=== PATIENT | male | born 1965 | race Caucasian/White ===

== ENCOUNTER 2016-09-03 06:39 | Emergency (ER) | payer MEDICAID ==
[2016-06-21 08:17] VITALS: BMI 36.7
[~2016-09-03 06:39] MED LIST: HYDROCODON-ACE1 EAC7 PO; HYDROCODONE-APA1 TAB PO
[2016-09-03 07:41] LABS: BASOPHILS 0.6 % (0.0-2.0); EOSINOPHILS 1.2 % (0-7); HEMATOCRIT 47.1 % (42.0-54.0); HEMOGLOBIN 15.3 g/dL (13.5-17.5); IMMATURE GRANULOCYTES 0.3 % (0-5); LYMPHOCYTES 17.8 % (15-50); MCH 27.3 pg (26.0-34.0); MCHC 32.5 g/dL (31.0-37.0); MCV 84.1 fL (80.0-100.0); MEAN PLATELET VOLUME 10.3 fL (7.4-10.4); MONOCYTES 6.6 % (2-11); NEUTROPHILS 73.5 % (40-80); PLATELET COUNT 188 10x3/uL (130-400); RDW 15.2 % (11.5-14.5); WBC 10.5 10x3/uL (4.8-10.8)
[2016-09-03 08:03] LABS: CALC OSMOLALITY 273 mosm/kg (275-300); CALCIUM 8.9 mg/dL (8.5-10.1); CARBON DIOXIDE 26.6 mmol/L (21.0-32.0); CHLORIDE - SERUM 101 mmol/L (98-107); CREATININE - SERUM 0.7 mg/dL (0.6-1.3); GLUCOSE 127 mg/dL (74-106); POTASSIUM - SERUM 4.6 mmol/L (3.5-5.1); SODIUM 136 mmol/L (136-145); UREA NITROGEN 13 mg/dL (7-18); eGFR NON AFRICAN AMERICAN > 90 mL/min (90-120)
[2016-09-03 08:05] LABS: TROPONIN-I < 0.017 ng/mL (0.000-0.060)
== END 2016-09-03 09:00 | disposition home or self-care (01) ==
LOC: D.ER 06:39
PROVIDERS: Emergency Medicine
DX: J20.9 Acute bronchitis, unspecified (principal); F17.200 Nicotine dependence, unspecified, uncomplicated

== ENCOUNTER 2017-02-02 14:53 | Emergency (ER) | payer MEDICAID ==
[2016-06-21 08:17] VITALS: BMI 36.7
[2017-02-02 16:09] LABS: BASOPHILS 0.4 % (0-2); EOSINOPHILS 1.1 % (0-7); HEMATOCRIT 43.8 % (42.0-54.0); HEMOGLOBIN 14.1 g/dL (13.5-17.5); IMMATURE GRANULOCYTES 0.3 % (0-5); LYMPHOCYTES 17.8 % (15-50); MCH 27.2 pg (26.0-34.0); MCHC 32.2 g/dL (31.0-37.0); MCV 84.6 fL (80.0-100.0); MEAN PLATELET VOLUME 10.5 fL (7.4-10.4); MONOCYTES 6.2 % (2-11); NEUTROPHILS 74.2 % (40-80); RBC 5.18 10x6/uL (4.20-6.10); RDW 15.5 % (11.5-14.5); WBC 10.8 10x3/uL (4.8-10.8)
[2017-02-02 16:16] LABS: ALBUMIN 3.3 g/dL (3.4-5.0); ALKALINE PHOSPHATASE 115 U/L (46-116); ALT (SGPT) 59 U/L (10-68); BILIRUBIN - TOTAL 0.26 mg/dL (0.2-1.3); CALC OSMOLALITY 279 mosm/kg (275-300); CALCIUM 9.3 mg/dL (8.5-10.1); CARBON DIOXIDE 27.1 mmol/L (21.0-32.0); CHLORIDE - SERUM 102 mmol/L (98-107); CREATININE - SERUM 0.7 mg/dL (0.6-1.3); GLUCOSE 149 mg/dL (74-106); POTASSIUM - SERUM 3.9 mmol/L (3.5-5.1); PROTEIN - SERUM 7.5 g/dL (6.4-8.2); SODIUM 137 mmol/L (136-145); UREA NITROGEN 21 mg/dL (7-18); eGFR NON AFRICAN AMERICAN > 90 mL/min (90-120)
[2017-02-02 16:20] LABS: TROPONIN-I < 0.017 ng/mL (0.000-0.060)
[2017-02-02 16:21] LABS: PLATELET COUNT 142 10x3/uL (130-400)
== END 2017-02-02 19:57 | disposition home or self-care (01) ==
LOC: D.ER 14:53
PROVIDERS: Emergency Medicine
DX: R05 Cough (principal); R50.9 Fever, unspecified; E86.0 Dehydration; R06.02 Shortness of breath; F17.200 Nicotine dependence, unspecified, uncomplicated; R00.0 Tachycardia, unspecified

== ENCOUNTER 2017-02-06 09:09 | Emergency (ER) | payer MEDICAID ==
[2016-06-21 08:17] VITALS: BMI 36.7
[2017-02-06 10:29] LABS: BASOPHILS 0.2 % (0-2); EOSINOPHILS 0.5 % (0-7); HEMOGLOBIN 14.7 g/dL (13.5-17.5); IMMATURE GRANULOCYTES 0.2 % (0-5); LYMPHOCYTES 8.7 % (15-50); MCH 27.5 pg (26.0-34.0); MCHC 32.7 g/dL (31.0-37.0); MCV 84.1 fL (80.0-100.0); MEAN PLATELET VOLUME 10.3 fL (7.4-10.4); MONOCYTES 3.9 % (2-11); NEUTROPHILS 86.5 % (40-80); PLATELET COUNT 140 10x3/uL (130-400); RBC 5.35 10x6/uL (4.20-6.10); RDW 15.9 % (11.5-14.5); WBC 12.8 10x3/uL (4.8-10.8)
[2017-02-06 10:43] LABS: CALC OSMOLALITY 278 mosm/kg (275-300); CALCIUM 9.1 mg/dL (8.5-10.1); CHLORIDE - SERUM 98 mmol/L (98-107); CREATININE - SERUM 0.6 mg/dL (0.6-1.3); POTASSIUM - SERUM 4.6 mmol/L (3.5-5.1); SODIUM 135 mmol/L (136-145); UREA NITROGEN 16 mg/dL (7-18); eGFR NON AFRICAN AMERICAN > 90 mL/min (90-120)
[2017-02-06 10:46] LABS: GLUCOSE 248 mg/dL (74-106)
== END 2017-02-06 12:12 | disposition home or self-care (01) ==
LOC: D.ER 09:09
PROVIDERS: Nurse Practitioner Acute Care
DX: J44.1 Chronic obstructive pulmonary disease with (acute) exacerbation (principal)

== ENCOUNTER 2017-02-13 16:16 | Observation (INO) | payer MEDICAID ==
[~2017-02-13] VITALS: Ht 182.9 cm; Wt 130.5 kg
[2017-02-13 17:01] VITALS: BP 133/77
[2017-02-13 17:24] VITALS: BP 133/77; Ht 182.9 cm; Wt 130.5 kg
[2017-02-13 17:30] LABS: BASOPHILS 0.2 % (0-2); EOSINOPHILS 0.9 % (0-7); HEMATOCRIT 44.2 % (42.0-54.0); HEMOGLOBIN 14.4 g/dL (13.5-17.5); IMMATURE GRANULOCYTES 0.4 % (0-5); MCH 27.1 pg (26.0-34.0); MCHC 32.6 g/dL (31.0-37.0); MCV 83.1 fL (80.0-100.0); MEAN PLATELET VOLUME 9.8 fL (7.4-10.4); MONOCYTES 5.7 % (2-11); NEUTROPHILS 75.8 % (40-80); PLATELET COUNT 151 10x3/uL (130-400); RBC 5.32 10x6/uL (4.20-6.10); RDW 15.6 % (11.5-14.5); WBC 14.1 10x3/uL (4.8-10.8)
--- NOTE | 2017-02-13 17:47 | NUR ---
PT ARRIVED A DIRECT ADMIT FROM OFFICE. VSS, AND LABS PENDING. PT IS HAVING EXTREME DIFFICULTY WITH HIS BREATHING AT THIS TIME. RR 26 AND VERY SHALLOW. HALINA NOTED IN RIGHT UPPER LOBE AND MIDDLE WITH RLL DIMINISHED AND BOTH LEFT SIDE LOBES DIMINISHED. CHEST XRAY HAS BEEN ORDERED AND I CALLED AND ASKED THEM TO COME STAT. FIRST EKG COMPLETED BUT POOR QUALITY R/T MUSCLE TREMORS BECAUSE PT IS HAVING SUCH A HARD TIME BREATHING. TELEMETRY APPLIED AND RUNNING SR IN THE 80S. PT STATES HIS STOOL IS FORMED WITH PERIODS OF LOOSE BLOODY STOOLS AND NOTED CLOTS. PTS ABDOMEN IS DISTENDED AND HE STATES EXTREME TENDERNESS TO THE TOUCH. BS ACTIVE BUT DISTANT. PT WANTS TO TRY AND EAT HIS FOOD AND STATES HE HASNT EATEN TODAY. CL IN REACH, BED IN LOWEST, SIDE RAILS X2, WILL CPOC.
[2017-02-13 17:48] LABS: ALBUMIN 3.3 g/dL (3.4-5.0); ALKALINE PHOSPHATASE 110 U/L (46-116); ALT (SGPT) 55 U/L (10-68); CALC OSMOLALITY 272 mosm/kg (275-300); CALCIUM 8.9 mg/dL (8.5-10.1); CHLORIDE - SERUM 99 mmol/L (98-107); CREATININE - SERUM 0.6 mg/dL (0.6-1.3); POTASSIUM - SERUM 4.3 mmol/L (3.5-5.1); PROTEIN - SERUM 6.8 g/dL (6.4-8.2); SODIUM 136 mmol/L (136-145); UREA NITROGEN 12 mg/dL (7-18); eGFR NON AFRICAN AMERICAN > 90 mL/min (90-120)
[2017-02-13 17:50] LABS: GLUCOSE 113 mg/dL (74-106)
[2017-02-13 18:00] LABS: CKMB 0.3 U/L (0.0-3.6); CREATINE KINASE 44 UL (21-232)
[2017-02-13 18:01] LABS: TROPONIN-I < 0.017 ng/mL (0.000-0.060)
--- NOTE | 2017-02-13 18:18 | NUR ---
PT CALLED ME TO LOOK AT HIS STOOL. PT HAD LARGE FORMED DARK GREENISH BM WITH BRIGHT RED BLOOD THROUGHOUT THE TOILET. WILL KEEP MONITERING, AT BEDSIDE TO ASSESS LUNG ISSUES.
[2017-02-13 19:00] VITALS: BP 137/80
--- NOTE | 2017-02-13 19:44 | NUR ---
IV SITED TO LEFT HAND, 2O GAUGE, PLACED BY TWYLA TIDWELL RN. PT TOLERATED WELL.
--- NOTE | 2017-02-13 21:23 | NUR ---
GONE TO CT BY WC.
--- NOTE | 2017-02-13 22:01 | NUR ---
HS MEDS GIVEN WITH FRESH ICE WATER. PT DENIES OTHER NEEDS, HS SNACK PROVIDED.
[2017-02-13 23:38] LABS: CKMB 0.3 U/L (0.0-3.6); CREATINE KINASE 42 UL (21-232)
[2017-02-13 23:39] LABS: TROPONIN-I < 0.017 ng/mL (0.000-0.060)
[2017-02-14] VITALS (8 sets, daily range): BP systolic 125–165; BP diastolic 52–73
--- NOTE | 2017-02-14 03:12 | NUR ---
AUTO CLUB SAFETY PROGRAM COORDINATOR AT BEDSIDE TO OBTAIN VITALS, CALL LIGHT IN REACH. WILL CONTINUE TO MONITOR.
--- NOTE | 2017-02-14 05:03 | NUR ---
RESTING WITH EYES CLOSED, RESPERATIONS EVEN, NO S/S DSITRESS NOTED.
[2017-02-14 05:18] LABS: BASOPHILS 0.1 % (0-2); EOSINOPHILS 0.3 % (0-7); HEMATOCRIT 42.6 % (42.0-54.0); HEMOGLOBIN 13.8 g/dL (13.5-17.5); IMMATURE GRANULOCYTES 0.4 % (0-5); LYMPHOCYTES 7.6 % (15-50); MCH 27.1 pg (26.0-34.0); MCHC 32.4 g/dL (31.0-37.0); MCV 83.7 fL (80.0-100.0); MEAN PLATELET VOLUME 10.4 fL (7.4-10.4); NEUTROPHILS 90.6 % (40-80); PLATELET COUNT 157 10x3/uL (130-400); RBC 5.09 10x6/uL (4.20-6.10); RDW 15.4 % (11.5-14.5)
[2017-02-14 05:25] LABS: WBC 9.9 10x3/uL (4.8-10.8)
[2017-02-14 05:47] LABS: ALKALINE PHOSPHATASE 110 U/L (46-116); ALT (SGPT) 50 U/L (10-68); CALCIUM 8.7 mg/dL (8.5-10.1); CARBON DIOXIDE 28.1 mmol/L (21.0-32.0); CHLORIDE - SERUM 100 mmol/L (98-107); CKMB 0.3 U/L (0.0-3.6); CREATINE KINASE 34 UL (21-232); CREATININE - SERUM 0.7 mg/dL (0.6-1.3); MAGNESIUM - SERUM 1.9 mg/dL (1.8-2.4); PHOSPHOROUS 3.3 mg/dL (2.5-4.9); POTASSIUM - SERUM 4.4 mmol/L (3.5-5.1); SODIUM 136 mmol/L (136-145); TROPONIN-I < 0.017 ng/mL (0.000-0.060); UREA NITROGEN 10 mg/dL (7-18); eGFR NON AFRICAN AMERICAN > 90 mL/min (90-120)
[2017-02-14 05:51] LABS: CALC OSMOLALITY 280 mosm/kg (275-300); GLUCOSE 274 mg/dL (74-106)
--- NOTE | 2017-02-14 07:30 | NUR ---
ASSESSMENT COMPLETED. TELEMERTY SHOWS SR. DENIES ANY NEEDS. CALL LIGHT IN REACH WITH SR UP. AMBUTATES IN ROOM. WILL MONITOR
--- NOTE | 2017-02-14 13:17 | NUR ---
RESTING QUIETLY RESP UNLABORED NAD NOTED
--- NOTE | 2017-02-14 18:14 | NUR ---
UP TO BATHROOM. DENIES ANY NEEDS.. SL TO LEFT HAND. TELEMERTY SHOWS SR
--- NOTE | 2017-02-14 21:22 | NUR ---
HS MEDS GIVEN WITH FRESH ICE WATER. INSTILLED CORTISPORIN 5 DROPS INTO RIGHT EAR. TYLENOL GIVEN FOR C/O HEADACHE. NO OTHER NEEDS EXPRESSED AT THIS TIME, BED LOW, CL IN REACH.
--- NOTE | 2017-02-14 22:12 | NUR ---
SL IV TO LEFT HAND AFTER ROCEPHIN INFUSION WAS COMPLETE. INSTILLED CORTISPORIN 5 DROPS INTO LEFT EAR. NO OTHER NEEDS AT THIS TIME, BED LOW, CL IN REACH.
[2017-02-15] VITALS: BP 130/66
--- NOTE | 2017-02-15 01:37 | NUR ---
RESTING WITH EYES CLOSED, RESPERATIONS EVEN, NO S/S DISTRESS NOTED.
[2017-02-15 04:00] VITALS: BP 120/52
[2017-02-15 05:17] LABS: BASOPHILS 0 % (0-2); EOSINOPHILS 0 % (0-7); HEMATOCRIT 40.8 % (42.0-54.0); HEMOGLOBIN 13.2 g/dL (13.5-17.5); IMMATURE GRANULOCYTES 0.3 % (0-5); LYMPHOCYTES 7.1 % (15-50); MCHC 32.4 g/dL (31.0-37.0); MCV 83.6 fL (80.0-100.0); MEAN PLATELET VOLUME 10.4 fL (7.4-10.4); MONOCYTES 4.5 % (2-11); NEUTROPHILS 88.1 % (40-80); PLATELET COUNT 167 10x3/uL (130-400); RBC 4.88 10x6/uL (4.20-6.10); RDW 15.6 % (11.5-14.5)
[2017-02-15 05:19] LABS: WBC 14.6 10x3/uL (4.8-10.8)
[2017-02-15 05:48] LABS: ALKALINE PHOSPHATASE 108 U/L (46-116); ALT (SGPT) 37 U/L (10-68); BILIRUBIN - TOTAL 0.25 mg/dL (0.2-1.3); CALC OSMOLALITY 279 mosm/kg (275-300); CALCIUM 9.2 mg/dL (8.5-10.1); CARBON DIOXIDE 27.1 mmol/L (21.0-32.0); CHLORIDE - SERUM 101 mmol/L (98-107); CREATININE - SERUM 0.8 mg/dL (0.6-1.3); GLUCOSE 265 mg/dL (74-106); POTASSIUM - SERUM 4.5 mmol/L (3.5-5.1); SODIUM 136 mmol/L (136-145); UREA NITROGEN 11 mg/dL (7-18); eGFR NON AFRICAN AMERICAN > 90 mL/min (90-120)
--- NOTE | 2017-02-15 07:29 | NUR ---
ASSESSMENT COMPLETED.TELEMERTY SHOWS SR. 02 AT 2 L/M PER NC. SL TO LEFT HAND. ALERT AND ORIENTED. DENIES ANY NEEDS. WILL MONITOR
[2017-02-15 08:18] VITALS: BP 131/65
--- NOTE | 2017-02-15 09:15 | NUR ---
SITTING WITH HOB UP 30 DEGREES CHEST PAIN DENIED AT THIS TIME. CALL LIGHT IN REACH WITH NEEDS DENIED WILL MONITOR
--- NOTE | 2017-02-15 11:08 | NUR ---
Patient Name: REYES GARCIA Admission Status: Urgent Accout number: [id number] Admission Date: 02-13-2017 : 1965 Admission Diagnosis: Attending: MIRI Current LOS: 2 Anticipated DC Date: 02-15-2017 Planned Disposition: Home Primary Insurance: [place] PRIVATE OPTIONS ROSS Discharge Planning Comments: * Is the patient Alert and Oriented? Yes 0 * How many steps to enter\exit or inside your home? 2 FLIGHTS 0 * PCP DR. PIERRE 0 * Pharmacy [facility]. 0 * Preadmission Environment Home Alone 0 * ADLs Independent 0 * Equipment None 0 * Other Equipment NO MEDICAL EQUIPMENT PROVIDER PREFERENCE 0 * List name and contact numbers for known caregivers / representatives who currently or will assist patient after discharge: RADHA OR FELICITY PARKSN, FRIENDS, 0 * Community resources currently utilized None 0 * Please name any agencies selected above. NONE 0 * Additional services required to return to the preadmission environment? No 0 * Can the patient safely return to the preadmission environment? Yes 0 * Has this patient been hospitalized within the prior 30 days at any hospital? No 0 CM RECEIVED ORDER FOR [employer]; SPOKE TO PT'S INSURANCE MERCHANDISE ASSOCIATE NURSE, CHANEL GREER WHO THINKS PT MAY REQUIRE OXYGEN AT DISCHARGE AND REPORTS PT IS BEING EVICTED IN 4 DAYS BUT DOES HAVE SAFE DISCHARGE PLAN FOR NOW. CM MET WITH PT IN ROOM TO DISCUSS DISCHARGE PLANNING AND NEEDS. PT REPORTS LIVING AT HOME INDEPENDENTLY AND ALONE IN HIS SMALL APARTMENT. 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 PT IS NOT SURE IF HE WILL BE ABLE TO STAY IN HIS APARTMENT AFTER THE NEXT FOUR DAYS OR NOT. PT REPORTS HE WANTS TO GO HOME TODAY SO HE CAN CHECK INTO HIS APARTMENT AND JOB STATUS. PT HAS NO MEDICAL EQUIPMENT AND NO OUTSIDE SERVICES ASSISTING IN THE HOME. CM DISCUSSED AVAILABILITY OF HOME HEALTH, REHAB SERVICES AND MEDICAL EQUIPMENT. PT DENIES DISCHARGE NEEDS, REPORTS PLAN TO WALK HOME AT DISCHARGE ALL OF HIS FRIENDS ARE AT WORK AND HE HAS NO MONEY FOR THE [employer] BUS. PT REPORTS HE HAS NO COPAY FOR HIS MEDICATIONS. PT WOULD LIKE HOME DELIVERY OF THE NEBULIZER IF POSSIBLE AND REPORTS HE DOES NOT WANT OXYGEN EVEN IF HE QUALIFIES FOR IT, WHICH HE THINKS HE WILL NOT NEED AND AGAIN STATES HE DOES NOT WANT. CM CALLED [facility], , SPOKE TO CORA WHO WILL RECEIVE REFERRAL AND PROCESS FOR HOME DELIVERY. CM FAXED REFERRAL TO ANJELICA AT [phone]. PT NOTIFIED, PROVIDED BUS PASS FOR HIS DISCHARGE HOME. PT DENIES FURHTER NEEDS. Supervisor Insecticide: Matt Sal
[2017-02-15 11:44] VITALS: BP 135/58
--- NOTE | 2017-02-15 12:44 | NUR ---
UP IN ROOM. DENIES ANY NEEDS. TELEMERTY SHOWS SR. WILL MONITOR
[2017-02-15] MEDS ORDERED: ALBUTEROL2.5 MG/3 M UPD (15:15)
[2017-02-15] MEDS ORDERED: OMNICEF300 MG PO (15:15)
[2017-02-15] MEDS ORDERED: BROVANA15 MCG/2 M INH (15:16)
[2017-02-15] MEDS ORDERED: IPRAT-ALBUT 0.5-3 ML INH (15:17)
[2017-02-15] MEDS ORDERED: PULMICORT0.5 MG/21 UPD (15:18)
[2017-02-15] MEDS ORDERED: SINGULAIR10 MG PO (15:18)
[2017-02-15] MEDS ORDERED: PROTONIX40 MG PO (15:19)
--- NOTE | 2017-02-15 15:41 | NUR ---
RESTING IN BED. MONIOTR SHOWS SR.
--- NOTE | 2017-02-15 16:10 | NUR ---
DISCHARGED. IV DC'D WITH TIP INTACT. INSTRUCTIONS GIVEN TO PT. TO TAXI PER WHEEL CHAIR
--- NOTE | 2017-02-16 08:33 | EC ---
PATIENT:REYES GARCIA DATE OF SERVICE: 02/13/17 SEX: M MEDICAL RECORD: [id number] DATE OF : 63 LOCATION:D. D.212 AGE OF PATIENT: 51 ADMISSION DATE: 02/13/17 REFERRING PHYSICIAN: INTERPRETING PHYSICIAN: CAM GARCIA MD ECHOCARDIOGRAM REPORT ECHO CHARGES 4 ECHO COMPLETE CLINICAL DIAGNOSIS: CHEST PAIN ECHOCARDIOGRAPHIC MEASUREMENTS (adult normal given) AC root (d.<3.7cm) LV Septum d (<1.2 cm> 1.7 Valve Excursion LV Septum (systole) 1.9 Left Atria (s.<4.0cm> 4.1 LVPW d(<1.2cm) 1.5 RV (d.<2.3cm) 3.6 LVPW (sytole) 1.9 LV diastole(<5.6CM) 5.0 MV E-F(>70mm/sec) LV systole 3.6 LVOT Diameter 1.9 MV exc.(>10mm) Est.ejection fraction (50-75%) Pericardial Effusion N DOPPLER: LVIT A 87.0 E 65.0 LA RVSP 18 LVOT 104 AOP1/2T Asc. Ao 185 RVOT RA PA AV Gradient Peak 13.74 AV Mean 8.19 AV Area 1.6 MV Gradient Peak 4.52 MV Mean 1.59 MV Area COMMENTS: Banking Assistant: Olvin FOUNTAIN Clinical Services Assistant:1 Dr. Garcia TAPE# PACS TWO-DIMENSIONAL ECHOCARDIOGRAM WITH DOPPLER 1. Left ventricular chamber size is within normal limits. Left ventricular systolic function is normal. Overall ejection fraction is estimated at 55 percent. 2. Left atrium, right atrium, and right ventricular chamber sizes are within normal limits. 3. Valvular structures have normal structure and motion. 4. Doppler interrogation only reveals trace tricuspid regurgitation. It is not hemodynamically significant. No other valvular insufficiency or stenosis. ECHOCARDIOGRAM REPORT [id number] REYES GARCIA 5. No evidence of pericardial effusion or left ventricular thrombus. CAM GARCIA MD at 0833 CC: [id number] DICTATION DATE: 02/15/172104 ARMATURE WINDER REPAIRER: JONNIE 02/15/172104 DIS IN 02/15/17 [id number] [place] [address]
== END 2017-02-15 16:14 | disposition home or self-care (01) ==
LOC: D.M2 16:16 → D.SDCHOLD 16:16 → OBSVTIME 16:17 → D.M2 16:23
PROVIDERS: ADMIT Family Medicine
DX: T54.91XA Toxic effect of unspecified corrosive substance, accidental (unintentional), initial encounter (principal); J68.3 Other acute and subacute respiratory conditions due to chemicals, gases, fumes and vapors; T60.91XA Toxic effect of unspecified pesticide, accidental (unintentional), initial encounter; J44.1 Chronic obstructive pulmonary disease with (acute) exacerbation; J20.9 Acute bronchitis, unspecified; J44.0 Chronic obstructive pulmonary disease with (acute) lower respiratory infection; H60.90 Unspecified otitis externa, unspecified ear; K76.0 Fatty (change of) liver, not elsewhere classified; K62.5 Hemorrhage of anus and rectum; F32.9 Major depressive disorder, single episode, unspecified; K21.9 Gastro-esophageal reflux disease without esophagitis; Z87.891 Personal history of nicotine dependence

== ENCOUNTER 2017-07-08 09:42 | Outpatient (CLI) | payer MEDICAID ==
[~2017-07-08] VITALS: Ht 182.9 cm; Wt 131.8 kg
--- NOTE | ~2017-07-08 | HEMODYNAMI ---
PATIENT:REYES GARCIA MEDICAL RECORD: [id number] : 63 LOCATION:SLIM ADMISSION DATE: 07/08/17 Generatedon:07/08/201713:35 Patient name: REYES GARCIA Patient #: [id number] SSN: D OB: 1965 Date of study: 07/08/2017 Page: Of Hemodynamic Procedure Report Patient Data Patient Demographics Procedure consent was obtained First Name: REYES Gender: Male Last Name: JOSE : 1965 Middle Initial: THIAGO Age: 51 year(s) Patient #: [id number] Race: Unknown Additional ID: [id number] Contact details [address]: [address] [place] [address] State: [place] City: [place] Zip code: [address] Past Medical History Allergies Allergen Reaction Date Comments Reported Penicillins 07/08/2017 Codeine 07/08/2017 Admission Admission Data Admission Date: 07/08/2017 Admission Time: 9:42 Procedure Procedure Types Cath Procedure Diagnostic Procedure C LH w/Coronaries Miscellaneous Procedures Moderate Sedation up to 30 minutes Procedure Description Procedure Date Procedure Date: 07/08/2017 Procedure Start Time: 13:14 Procedure End Time: 13:35 Procedure Staff Name Function Man Guillaume MD Performing Physician Sharee Savage RT Monitor Betty Black RT Scrub Harrison Hatch RN Nurse Procedure Data Cath Procedure Fluoroscopy Diagnostic fluoroscopy Total fluoroscopy Time: 3.6 time: 3.6 min min Diagnostic fluoroscopy Total fluoroscopy dose: dose: 1120 mGy 1120 mGy Contrast Material Contrast Material Type Amount (ml) Isovue 300 78 Entry Location Entry Primary Successful Side Size Upsize Upsize Entry Closure Rushing ccessful Closure Location (Fr) 1 (Fr) 2 (Fr) Remarks Device Remarks Radial Right 6 Fr Mechanical artery Short Compression Estimated blood loss: 5 ml Diagnostic catheters Device Type Used For End Catheter Placement Terumo 5Fr Guero 110cm LV Angiography catheter Terumo 5Fr Guero 110cm Right Coronary catheter Angiography Diagnostic Terumo 5Fr Left Coronary Ramseur 110cm catheter Angiography Procedure Complications No complications Procedure Medications Medication Administration Route Dosage Oxygen NC 2 l/min Lidocaine 2% added to field 20 Heparin Flush Bag added to field 2 bags (1000units/500ml NS) 0.9% NaCl I.V. 100 ml/hr Radial Cocktail added to field 1 syringe (Verapomil 2mg/Nitro 400mcg/Heparin 1500units) Fentanyl 50 mcg Versed I.V. 1 mg Fentanyl 50 mcg Versed I.V. 1 mg Hemodynamics Rest Heart Rate: 81 (bpm) Pressure Samples Time Site Value (mmHg) Purpose Heart Use Rate(bpm) 13:18 LV 148/16,19 Snapshot 90 Gradients Valve Time Site Site Mean SEP/DFP Peak To Heart Use 1 2 (mmHg) (sec/min) Peak Rate (mmHg) (bpm) Aortic 13:19 LV AO 90 Snapshots Pre Cath Intra NCS Post Cath Vital Signs Time Heart Resp SPO2 etCO2 NIBP (mmHg) Rhythm Pain Sedation Rate (ipm) (%) (mmHg) Status Level (bpm) 13:03:32 80 31 95 0 138/82(114) NSR 0 (11) 10(A) , No pain 13:08:21 85 37 95 17.2 140/82(98) NSR 0 (11) 10(A) , No pain 13:13:03 87 23 96 16.5 126/84(101) NSR 0 (11) 10(A) , No pain 13:18:29 88 19 96 27.8 102/60(88) NSR 0 (11) 9(A) , No pain 13:23:10 82 20 94 33 116/63(87) NSR 0 (11) 10(A) , No pain 13:27:52 87 28 94 27.8 120/76(93) NSR 0 (11) 10(A) , No pain Medications Time Medication Route Dose Verified Delivered Reason Notes Effectiveness by by 13:13:31 Oxygen NC 2 l/min Man Buffie used for Markell Hatch RN procedure 13:13:38 Lidocaine 2% added 20ml Man Man for local to vial Markell Guillaume MD anesthetic field 13:13:45 Heparin Flush added 2 bags Man Amn used for Bag to Markell Guillaume MD procedure (1000units/500ml field NS) 13:13:54 0.9% NaCl I.V. 100 Man Buffie Per ml/hr Markell Hatch RN physician 13:15:59 Radial Cocktail added 1 Man Man for (Verapomil to syringe Markell Guillaume MD vasodilation 2mg/Nitro field 400mcg/Heparin 1500units) 13:16:27 Fentanyl 50 mcg Man Buffie for sedation Markell Hatch RN 13:16:57 Versed I.V. 1 mg Man Buffie for sedation Markell Hatch RN 13:20:28 Fentanyl 50 mcg Man Buffie for sedation Markell Hatch RN 13:20:36 Versed I.V. 1 mg Man Buffie for sedation Markell Hatch RN Procedure Log Time Note 12:34:32 Sharee Counts RT(R) sent for patient. Start room use. 12:34:33 Time tracking: Regular hours 12:34:37 Plan of Care:Hemodynamics will remain stable., Cardiac rhythm will remain stable., Comfort level will be maintained., Respiratory function will remain adequate., Patient/ family verbilizes understanding of procedure., Procedure tolerated without complication., Recovers from procedure without complications.. 12:52:32 Patient received from Pre/Post Procedure Room to [facility] 1 Alert and oriented. Tansferred to table in Supine position. 12:52:33 Warm blankets applied, and erlinda hugger turned on for patient comfort. 12:52:34 Correct patient and procedure confirmed by team. 12:52:35 Signed procedure consent form obtained from patient. 12:52:38 ECG and BP/O2 sat monitors applied to patient. 13:02:33 Vital chart was started 13:07:53 Baseline sample Acquired. 13:07:56 Rhythm: sinus rhythm 13:07:58 Full Disclosure recording started 13:08:50 H&P Date Dictated: 07/08/2017 Within 30 days and on chart., New H&P dictated by physician.. 13:08:52 Pre-procedure instructions explained to patient. 13:08:52 Pre-op teaching completed and patient verbalized understanding. 13:08:54 Family in waiting room. 13:08:57 Patient NPO since Midnight. 13:09:04 Patient allergic to Penicillins 13:09:09 Patient allergic to Codeine 13:09:11 Is the patient allergic to Iodine/contrast media? No. 13:09:14 Is patient on blood thinner?No 13:09:15 Patient diabetic? No. 13:09:18 Previous problem with sedation/anesthesia? No ? 13:09:20 Snore? No 13:09:21 Sleep apnea? No 13:09:23 Deviated septum? No 13:09:24 Opens mouth fully? Yes 13:09:24 Sticks out tongue? Yes 13:09:41 Airway obstruction? Yes Chemical Guerrero on lungs 02/2017 13:09:45 Dentures? Yes OUT 13:09:48 Pre procedure: right dorsailis pedis pulse 1+ Palpable, but thready & weak; easily obliterated 13:09:50 Modified Corey's test Ulnar < 7 seconds 13:09:51 Patient pain scale 0/10 ?. 13:09:56 IV patent on arrival in left hand with 0.9% NaCl at O. 13:09:59 Lab results completed and on chart. 13:10:03 Right Radial & Right Groin area was prepped with chlora-prep and draped in sterile fashion 13:10:04 Alarms reviewed by R. N. 13:10:04 Sharps counted by scrub and verified by R.N. 13:10:06 Use device set Radial Dx 13:10:07 Acist Syringe opened to sterile field. 13:10:07 Medline Cath Pack opened to sterile field. 13:10:08 Bag Decanter opened to sterile field. 13:10:08 Terumo 6Fr Slender Glidesheath opened to sterile field. 13:10:08 St Juan 260cm J .035 wire opened to sterile field. 13:10:09 Acist Hand Control opened to sterile field. 13:10:09 Acist Manifold opened to sterile field. 13:10:09 Tegaderm 4 x 4 opened to sterile field. 13:10:10 MBrace Wrist Support opened to sterile field. 13:10:18 Cook 21G 4cm Radial Needle opened to sterile field. 13:10:24 Final Timeout: patient, procedure, and site verified with staff and physician. All members of the team are in agreement. 13:10:26 Right Radial site verified by team. 13:10:29 Physical assessment completed. ASA score P 2 - A patient with mild systemic disease as per Man Guillaume MD. 13:10:33 Sedation plan: IV Moderate Sedation Medication:Versed, Fentanyl 13:13:31 Oxygen 2 l/min NC was administered by Harrison Hatch RN; used for procedure; 13:13:38 Lidocaine 2% 20ml vial added to field was administered by Man Guillaume MD; for local anesthetic; 13:13:45 Heparin Flush Bag (1000units/500ml NS) 2 bags added to field was administered by Man Guillaume MD; used for procedure; 13:13:50 Zero performed for pressure channel P1 13:13:54 0.9% NaCl 100 ml/hr I.V. was administered by Harrison Hatch RN; Per physician; 13:14:15 Procedure started. 13:14:22 Local anesthetic to right radial artery with Lidocaine 2% by Man Guillaume MD.INITIAL ACCESS ONLY 13:15:22 A 6 Fr Short sheath was inserted into the Right Radial artery 13:15:59 Radial Cocktail (Verapomil 2mg/Nitro 400mcg/Heparin 1500units) 1 syringe added to field was administered by Man Guillaume MD; for vasodilation; 13:16:27 Fentanyl 50 mcg was administered by Harrison Hatch RN; for sedation; 13:16:36 A Terumo 5Fr Guero 110cm catheter was advanced over the wire and used for LV Angiography. 13:16:57 Versed 1 mg I.V. was administered by Harrison Hatch RN; for sedation; 13:18:51 LV gram done using CARTER 13:19:01 EF : 60 % 13:20:28 Fentanyl 50 mcg was administered by Harrison Hatch RN; for sedation; 13:20:36 Versed 1 mg I.V. was administered by Harrison Hatch RN; for sedation; 13:21:02 A Terumo 5Fr Guero 110cm catheter was advanced over the wire and used for Right Coronary Angiography. 13:21:35 Catheter removed. 13:22:39 A Diagnostic Terumo 5Fr Ramseur 110cm catheter was advanced over the wire and used for Left Coronary Angiography. 13:25:51 Catheter removed. 13:26:07 Sheath removed intact; hemostasis achieved with Mechanical Compression to the Right Radial artery. 13:26:20 Terumo TR Band Large opened to sterile field. 13:26:24 Procedure ended.(Physican Out) 13:26:37 Fluoroscopy time 03.60 minutes. 13:26:45 Fluoroscopy dose: 1120 mGy 13:26:45 Flurop Dose total: 1120 13:26:50 Contrast amount:Isovue 300 78ml. 13:26:51 Sharps counted by scrub and verified by R.N. 13:26:53 TR band inflated with 12cc of air. 13:26:54 Insertion/operative site no bleeding no hematoma. 13:27:00 Post right radial artery:stable, clean and dry 13:27:02 Post Procedure Pulses reassessed and unchanged 13:27:17 Post-procedure physical assessment completed. ASA score P 2 - A patient with mild systemic disease as per Man Guillaume MD. 13:27:20 Post procedure rhythm: unchanged. 13:27:22 Estimated blood loss: 5 ml 13:27:24 Post procedure instruction explained to patient.Patient verbalizes understanding. 13:27:24 Patient needs reinforcement of post procedure teaching. 13:27:35 Procedure type changed to Cath procedure, Diagnostic procedure, LHC, LHC w/Coronaries, Miscellaneous Procedures, Moderate Sedation up to 30 minutes 13:27:43 Procedure Complication : No complications 13:27:46 See physician's report for complete and final results. 13:28:04 High Pressure Extension Tubing (Guillaume) opened to sterile field. 13:28:39 Procedure and supply charges have been captured, reviewed, submitted and are correct. 13:29:34 Vital chart was stopped 13:29:36 Report given to Pre/Post Procedure Room. 13:35:07 Patient transfered to Pre/Post Procedure Room with Stretcher. 13:35:09 Procedure ended. 13:35:09 Full Disclosure recording stopped 13:35:13 End room use (Document Last) Device Usage Item Name Manufacture Quantity Catalog Hospital Part Current Minimal Lot# / Number Charge Number Stock Stock Serial# Code Acist Acist 1 51798 176876 691119 296479 20 Syringe Medical Systems Inc Medline Cardinal 1 [id number] 962068 67999 630756 5 Cath Pack Health Bag Microtek 1 2001S 562181 96718 918382 5 Decanter Medical Inc. Terumo 6Fr Terumo 1 [id number] 849196 991844 007141 [address] St Juan 1 967515 375817 167617 914117 30 260cm J .035 wire Acist Hand Acist 1 32300 112015 629477 594303 5 Control Medical Systems Inc Acist Acist 1 65699 741415 794659 806791 5 Manifold Medical Systems Inc Tegaderm 4 3M 1 1626W 800302 078520 961721 5 x 4 MBrace Advanced 1 140-0250-00 669302 41682 381685 5 Wrist Vascular Support Dynamics Cook 21G Rebyoo 1 [id number] 512560 528765 486812 5 4cm Radial Needle Terumo 5Fr Terumo 1 40-3733 854032 380078 849951 5 Guero 110cm catheter Diagnostic Terumo 1 40-8243 434579 500169 870179 5 Terumo 5Fr Ramseur 110cm catheter Terumo TR Terumo 1 [id number] 160235 720258 565520 40 Band Large High Merit 1 [id number] 918580 75210 924256 10 Pressure Medical Extension Tubing (Guillaume) Signature Audit [place] Stage Time Signature Unsigned Intra-Procedure 07/08/2017 Sharee 1:35:22 PM Counts RT(R) Signatures Monitor : Sharee Signature : Counts RT Date : Time : [place] [id number]
[~2017-07-08 09:42] MED LIST changes: +ALBUTEROL2.5 MG/3 M UPD; +BROVANA15 MCG/2 M INH; +IPRAT-ALBUT 0.5-3 ML INH; +OMNICEF300 MG PO; +PROTONIX40 MG PO; +PULMICORT0.5 MG/21 UPD; +SINGULAIR10 MG PO
[2017-07-08] MEDS ORDERED: FLUTICASONE PRO16 GM NASAL (10:20)
[2017-07-08] MEDS ORDERED: PROVENTIL HFA6.7 GM INH (10:22)
[2017-07-08 10:32] VITALS: BP 130/71; BMI 39.4
[2017-07-08 10:40] LABS: BASOPHILS 0.2 % (0-2); EOSINOPHILS 1.4 % (0-7); HEMATOCRIT 45.6 % (42.0-54.0); IMMATURE GRANULOCYTES 0.1 % (0-5); LYMPHOCYTES 18.9 % (15-50); MCH 26.8 pg (26.0-34.0); MCHC 32.9 g/dL (31.0-37.0); MCV 81.4 fL (80.0-100.0); MEAN PLATELET VOLUME 10.1 fL (7.4-10.4); MONOCYTES 5.1 % (2-11); NEUTROPHILS 74.3 % (40-80); PLATELET COUNT 164 10x3/uL (130-400); RDW 14.8 % (11.5-14.5); WBC 8.7 10x3/uL (4.8-10.8)
[2017-07-08 11:00] LABS: CALC OSMOLALITY 270 mosm/kg (275-300); CALCIUM 8.8 mg/dL (8.5-10.1); CARBON DIOXIDE 25.1 mmol/L (21.0-32.0); CHLORIDE - SERUM 100 mmol/L (98-107); CREATININE - SERUM 0.6 mg/dL (0.6-1.3); POTASSIUM - SERUM 4.1 mmol/L (3.5-5.1); SODIUM 135 mmol/L (136-145); UREA NITROGEN 13 mg/dL (7-18); eGFR NON AFRICAN AMERICAN > 90 mL/min (90-120)
[2017-07-08 11:05] LABS: GLUCOSE 115 mg/dL (74-106)
--- NOTE | 2017-07-08 13:46 | NUR ---
1340 RECEIVED PT FROM JUNK REMOVAL SPECIALIST. PT IS ALERT. RR EVEN AND UNLABORED ON O2 AT 2 LPM VIA NC. TR BAND TO RIGHT WRIST IS CDI, AREA FREE FROM BLEEDING OR HEMATOMA. FINGERS WARM, CAP REFILL IS BRISK. NSR WITH RATE OF 82, BP IS 100/64. PT DENIES ANY C/O AT THIS TIME. NO FAMILY AT BEDSIDE. CALL LIGHT IS IN REACH, PT INSTRUCTED TO CALL FOR NEEDS AND VERBALIZES UNDERSTANDING. PO FLUIDS SERVED.
--- NOTE | 2017-07-08 13:54 | NUR ---
SANDWICH SERVED. PT DENIES ANY C/O. NO BLEEDING OR HEMATOMA NOTED AT CATH SITE, TR BAND IS CDI. FINGERS WARM, CAP REFILL IS BRISK, CALL LIGHT IS IN REACH. WILL CONTINUE TO MONITOR.
--- NOTE | 2017-07-08 14:20 | NUR ---
1420 PT DENIES ANY C/O. NO BLEEDING OR HEMTATOMA NOTED AT CATH SITE. VSS, CALL LIGHT IN REACH. RR EVEN AND UNLABORED.
--- NOTE | 2017-07-08 14:35 | NUR ---
1435 PT DENIES ANY C/O. 3 CC OF AIR REMOVED FROM TR BAND WITH NO BLEEDIING OR HEMATOMA NOTED. FINGERS WARM, CAP REFILL IS BRISK. VSS, CALL LIGHT IN REACH. NO FAMILY AT BEDSIDE, WILL CONTINUE TO MONITOR.
--- NOTE | 2017-07-08 14:50 | NUR ---
1450 3 CC OF AIR REMOVED FROM TR BAND WITH NO BLEEDING OR HEMATOMA NOTED. PT DENIES ANY C/O AT THIS TIME. FINGERS WARM, CAP REFILL IS BRISK. RR EVEN AND UNLABORED ON O2 AT 2 LPM VIA NC.
--- NOTE | 2017-07-08 15:09 | NUR ---
CM met with patient prior to procedure. He reports he was evicted from his apartment 2-3 weeks ago. He was temporarily living in a tent, but has since moved into trailer house that his brother was using for storage. He states the trailer has running water. He states they have extension cords ran to the home from his brothers home for electricity. He states he uses his nebulizer 4x per day and wears home O2 @ HS. He states [facility] came and set up his O2 after he moved into the trailer. He states he needs a regulator for his back up O2 tank. He has applied for SS disability and SNAP benefits. He is concerned about transportation home - his cell phone is out of minutes & his brother's cell phone is also out of minutes - he states they only way to contact him is to connect to [employer] and message him. Explained CM will assist with taxi transportation if he is unable to contact his brother for transport. Initially patient stated to RONY Lance he had not eaten since Saturday. He reports to me that he ate a little last night, but no much due to having upset stomach due to being nervous about his test today. He states he has had to rely on his brother for assistance with obtaining food and his resources are limited. Discussed area shelters with him - he states they wont accept him due to his medical needs (O2). Discussed NH options - he is not interested in placement at this time. Anticipate dc this afternoon pending results of procedure today. Call placed salina Ritter with [facility]. He states patient should have a regulator on his back up O2 tank at home. He states they will go to his home tomorrow afternoon and evaluate equipment. CM will follow.
--- NOTE | 2017-07-08 15:31 | NUR ---
ALL AIR REOVED FROM TR BAND WITH NO BLEEDING OR HEMATOMA NOTED. FINGERS WARM, CAP REFILL IS BRISK. PT DENIES ANY C/O. AWAITING ROOM ASSIGNEMENT FOR ADMIT.
--- NOTE | 2017-07-08 15:46 | NUR ---
ALL AIR HAD BEEN REMOVED FROM TR BAND, BAND HAS BEEN REMOVED AND 2X2, TEGADERM PLACED TO SITE. PT DENIES ANY C/O AT THIS TIME. CALL LIGHT IN REACH.
--- NOTE | 2017-07-08 16:41 | NUR ---
PT WATCHING TV, RR EVEN AND UNLABORE DON O2 AT 2 LPM VIA NC. DENIES ANY C/O. DRESSING TO RIGHT WRIST IS CDI, NO BLEEDING OR HEMATOMA NOTED. PULSES PALPABLE. NSR PER MONITOR WITH RATE OF 80. AWAITING ROOM ASSIGNMENT.
--- NOTE | 2017-07-08 17:16 | NUR ---
PT SITTING UP IN BED,WATCHING TV. NSR WITH RATE OF 81. BPIS 115/70. PT DENIES ANY C/O AT THIS TIME. DRESSING TO RIGHT WRIST IS CDI, NO BLEEDING OR HEMATOMA NOTED. PULSES PALPABLE, FINGERS WARM AND CAP REFILL IS BRISK. CALL LIGHT IN REACH. WILL CONTINUE TO MONITOR.
--- NOTE | 2017-07-08 17:46 | NUR ---
DRESSING TO RIGHT WRIST IS CDI, PT DENIES ANY C/O. NSR PER MONITOR WITH RATE OF 79. BP IS 126/71. REPORT CALLED TO RONY HOLDEN. PT TRANSFERRED TO ROOM 2104 VIA STRETCHER.
[2017-07-08 18:44] VITALS: BP 120/65; Ht 182.9 cm; Wt 131.8 kg
--- NOTE | 2017-07-08 19:15 | NUR ---
ROUNDING NOTE: PT IS ALERT AND ORIENTED, SITTING UP AT EDGE OF BED AT CHANGE OF SHIFT ON RA. PT HAS SALINE LOC TO LEFT WRIST. RIGHT WRIST W/ RIGHT RADIAL CATH SITE WITH DRESSING INTACT, RADIAL PULSE PALPABLE AND STRONG, NO BLEEDING. PT IS UP AND JOANA W/O AN AD. PLAN IS FOR CASE MANAGEMENT TO WORK ON D/C PLAN TOMORROW. WILL CONT TO MONITOR.
[2017-07-08 20:33] VITALS: BP 115/89
[2017-07-09 03:47] VITALS: BP 139/89
--- NOTE | 2017-07-09 07:00 | NUR ---
RECEIVED REPORT. ASSUMED CARE OF PATIENT. RESTING IN BED WITH EYES CLOSED. EASILY AROUSED. NO DISTRESS. CALL LIGHT WITHIN REACH.
[2017-07-09 08:00] VITALS: BP 115/78
--- NOTE | 2017-07-09 09:02 | NUR ---
0855 20 GAUGE IV CATHETER REMOVED FROM LEFT WRIST. NO BLEEDING FROM SITE. CATHETER TIP INTACT. 2X2 GAUZE APPLIED AND SECURED WITH TAPE. 0900 DISCHARGE INSTRUCTIONS PROVIDED TO PATIENT. VERBALZIED ALL UNDERSTANDINGS. WAITING ON AM TRAY PATIENT DID NOT RECEIVE BREAKFAST YET. NO DISTRESS.
--- NOTE | 2017-07-09 10:21 | NUR ---
CM INFORMED BY BEDSIDE NURSE THAT PT IS ASKING FOR [facility] HOME. CM MET WITH PT IN ROOM TO DISCUSS DISCHARGE NEEDS. PT DENIES NEEDS OTHER THAN TRANSPORTATION TO GET HOME. PT DENIES HAVING ANY FRIENDS OR FAMILY TO CALL, DENIES HAVING FUNDS FOR HIS OWN TRANSPORTATION HOME. CM DISCUSSED [employer], PT REPORTS HE HAS TAKEN BUS IN THE PAST, THE BUS DOES STOP CLOSEBY HIS HOME; PT DENIES HAVING $1.50 FOR BUS PASS. CM PROVIDED PT WITH BUS PASS TO GET HOME. PT DENIES FURTHER NEEDS. RICCARDO OLSEN, CASE MANAGEMENT
--- NOTE | 2017-07-09 10:26 | NUR ---
BUS PASS GIVEN TO PATIENT VIA CASE MANAGEMENT. AFTER CASE MANAGEMENT INFORMING THIS ANODIC TREATER OF PATIENT HAVING BUS PASS, CAME TO CHECK ON PATIENT. PATIENT HAS LEFT ROOM AND DIDN'T TELL ANYONE HE WAS LEAVING. NO PERSONAL BELONGINGS IN ROOM AND PATIENT DISCHARGE INSTRUCTIONS ALSO ABSENT. PATIENT AMBULATED [facility]. PATIENT WAS DISCHARGED TO HOME FOR SELF CARE.
== END 2017-07-09 10:25 | disposition home or self-care (01) ==
LOC: D.CATH 09:42 → D.M2 17:45 → D.CATH 07-09 10:25
PROVIDERS: Internal Medicine Cardiovascular Disease
DX: I20.9 Angina pectoris, unspecified (principal); J44.9 Chronic obstructive pulmonary disease, unspecified; R94.30 Abnormal result of cardiovascular function study, unspecified; Z01.812 Encounter for preprocedural laboratory examination

== ENCOUNTER → 2017-07-22 08:08 | Outpatient (CLI) | payer OTHER ==
[2017-07-08 18:44] VITALS: BMI 39.4
[~2017-07-22 08:08] MED LIST changes: +FLUTICASONE PRO16 GM NASAL; +PROVENTIL HFA6.7 GM INH
== END | disposition home or self-care (01) ==
LOC: D.RT 08:08
DX: Z02.71 Encounter for disability determination (principal)

== ENCOUNTER → 2017-08-01 10:53 | Outpatient (CLI) | payer MEDICAID ==
[2017-07-08 18:44] VITALS: BMI 39.4
[2017-08-02 08:18] LABS: IMMUNOGLOBULIN E 41 IU/mL (0-100)
== END | disposition home or self-care (01) ==
LOC: D.RT 10:53
PROVIDERS: Internal Medicine Pulmonary Disease
DX: J44.9 Chronic obstructive pulmonary disease, unspecified (principal)

== ENCOUNTER → 2017-08-20 09:42 | Outpatient (CLI) | payer MEDICAID ==
[2017-07-08 18:44] VITALS: BMI 39.4
[2017-08-20 10:47] LABS: ALBUMIN 3.3 g/dL (3.4-5.0); BILIRUBIN - DIRECT 0.12 mg/dL (0.00-0.30); BILIRUBIN - INDIRECT 0.18 mg/dL (0.00-1.00); BILIRUBIN - TOTAL 0.3 mg/dL (0.2-1.3); PROTEIN - SERUM 6.9 g/dL (6.4-8.2)
== END | disposition home or self-care (01) ==
LOC: D.US 08-19 09:00 → D.LAB 08-19 09:30 → D.US 09:42
PROVIDERS: Internal Medicine Gastroenterology
DX: K76.0 Fatty (change of) liver, not elsewhere classified (principal)

== ENCOUNTER → 2017-10-07 09:59 | Outpatient (CLI) | payer MEDICAID ==
[2017-07-08 18:44] VITALS: BMI 39.4
[2017-10-07 10:28] LABS: BASOPHILS 0.3 % (0-2); EOSINOPHILS 1.2 % (0-7); HEMATOCRIT 43.6 % (42.0-54.0); HEMOGLOBIN 14.4 g/dL (13.5-17.5); IMMATURE GRANULOCYTES 0.2 % (0-5); LYMPHOCYTES 17.1 % (15-50); MCH 27.3 pg (26.0-34.0); MCV 82.6 fL (80.0-100.0); MEAN PLATELET VOLUME 9.7 fL (7.4-10.4); MONOCYTES 5.9 % (2-11); NEUTROPHILS 75.3 % (40-80); PLATELET COUNT 156 10x3/uL (130-400); RBC 5.28 10x6/uL (4.20-6.10); RDW 14.9 % (11.5-14.5); WBC 10.1 10x3/uL (4.8-10.8)
[2017-10-07 10:49] LABS: ALBUMIN 3.7 g/dL (3.4-5.0); ALKALINE PHOSPHATASE 123 U/L (46-116); ALT (SGPT) 72 U/L (10-68); CALC OSMOLALITY 275 mosm/kg (275-300); CARBON DIOXIDE 25.1 mmol/L (21.0-32.0); CHLORIDE - SERUM 103 mmol/L (98-107); CREATININE - SERUM 0.7 mg/dL (0.6-1.3); GLUCOSE 132 mg/dL (74-106); POTASSIUM - SERUM 4.5 mmol/L (3.5-5.1); PROTEIN - SERUM 7.8 g/dL (6.4-8.2); SODIUM 136 mmol/L (136-145); UREA NITROGEN 18 mg/dL (7-18); eGFR NON AFRICAN AMERICAN > 90 mL/min (90-120)
[2017-10-08 13:15] LABS: ANA REFLEX - ANTICHROMATIN ABS <0.2 AI (0.0-0.9); ANA REFLEX - CENTROMERE B ABS <0.2 AI (0.0-0.9); ANA REFLEX - DBL STRANDED DNA <1 IU/mL (0-9); ANA REFLEX - DIRECT Positive (Negative); ANA REFLEX - JO-1 AB <0.2 AI (0.0-0.9); ANA REFLEX - SCL-70 <0.2 AI (0.0-0.9); ANA REFLEX - SJOGRENS AB SSA <0.2 AI (0.0-0.9); ANA REFLEX - SJOGRENS AB SSB <0.2 AI (0.0-0.9); ANA REFLEX - SMITH AB <0.2 AI (0.0-0.9)
== END | disposition home or self-care (01) ==
LOC: D.LAB 09:59 → D.CT 10:30
PROVIDERS: Internal Medicine Pulmonary Disease
DX: J44.9 Chronic obstructive pulmonary disease, unspecified (principal)

== ENCOUNTER → 2018-01-29 09:19 | Outpatient (CLI) | payer MEDICAID ==
[2017-07-08 18:44] VITALS: BMI 39.4
== END | disposition home or self-care (01) ==
LOC: D.US 09:19
DX: N50.819 Testicular pain, unspecified (principal)

== ENCOUNTER → 2018-05-30 14:40 | Outpatient (CLI) | payer MEDICAID ==
[2017-07-08 18:44] VITALS: BMI 39.4
== END | disposition home or self-care (01) ==
LOC: D.MRI 14:40
DX: M79.672 Pain in left foot (principal)

== ENCOUNTER → 2018-07-01 09:21 | Outpatient (CLI) | payer MEDICAID ==
[2017-07-08 18:44] VITALS: BMI 39.4
[2018-07-01 10:44] LABS: ALBUMIN 3.3 g/dL (3.4-5.0); BILIRUBIN - DIRECT 0.08 mg/dL (0.00-0.30); BILIRUBIN - INDIRECT 0.15 mg/dL (0.00-1.00); BILIRUBIN - TOTAL 0.23 mg/dL (0.2-1.3); PROTEIN - SERUM 7.7 g/dL (6.4-8.2)
== END | disposition home or self-care (01) ==
LOC: D.US 09:21
PROVIDERS: Internal Medicine Gastroenterology
DX: K76.0 Fatty (change of) liver, not elsewhere classified (principal)

== ENCOUNTER 2018-08-20 07:14 | Day surgery (SDC) | payer MEDICAID ==
[~2018-08-20] VITALS: Ht 182.9 cm; Wt 136.8 kg
[2018-08-20] MEDS ORDERED: PROZAC20 MG PO (08:09)
[2018-08-20] MEDS ORDERED: IBUPROFEN800 MG PO (08:11)
[2018-08-20 08:19] VITALS: BP 114/82; Ht 182.9 cm; Wt 136.8 kg
[2018-08-20 08:27] LABS: HEMATOCRIT 43.7 % (42.0-54.0); HEMOGLOBIN 14.3 g/dL (13.5-17.5); MCH 27.3 pg (26.0-34.0); MCHC 32.7 g/dL (31.0-37.0); MCV 83.4 fL (80.0-100.0); MEAN PLATELET VOLUME 10.7 fL (7.4-10.4); RBC 5.24 10x6/uL (4.20-6.10); WBC 10.9 10x3/uL (4.8-10.8)
--- NOTE | 2018-08-20 08:30 | NUR ---
IV STARTED WITH 22G ANGIOCATH IN RIGHT HAND, TOLERATED WELL
--- NOTE | 2018-08-25 15:47 | OP ---
PATIENT NAME: REYES GARCIA MEDICAL RECORD: [id number] :63 LOCATION:[facility] ADMISSION DATE: SURGEON: INES MUÑOZ DO DATE OF OPERATION: 08/20/2018 PROCEDURE: EGD with biopsies. INDICATIONS FOR PROCEDURE: Dysphagia, generalized abdominal pain, nausea. SCOPE: Olympus video gastroscope. MEDICATIONS: Propofol IV per anesthesia. ESTIMATED BLOOD LOSS: Minimal. COMPLICATIONS: None. FINDINGS: Informed consent was given. The patient was made comfortable with the above medication. After reaching an adequate level of sedation by slow IV push, the patient was placed on his left side. The endoscope was then advanced under direct visualization through the mouth to the second portion of duodenum. The upper, and middle thirds of the esophagus appeared normal. 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 There was a single tongue, which was approximately 5 cm in length. Cold forceps biopsies were taken from this tongue to confirm the presence of Agustin's, if this is in fact present. The endoscope was advanced beyond the GE junction into the stomach and retroflexed to view the cardia, where a very small sliding hiatal hernia was present. Throughout the entire stomach, there was erythema, granularity, and congestion. The mucosa was very friable. Along the incisura and in the antrum regions, there were areas of diffuse superficial ulcerations. Multiple cold forceps biopsies were taken to submit for histopathology and to rule out the presence of H. pylori. The endoscope was advanced beyond the pylorus into the duodenum. The entire exam and duodenum down to the second portion appeared normal. The endoscope was withdrawn from the patient. The patient tolerated the procedure well and there were no complications. IMPRESSION: 1. LA class C reflux-induced esophagitis. 2. 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 3. Diffuse gastritis with ulcerations in the antrum and incisura. 4. Small sliding hiatal hernia. PLAN AND RECOMMENDATIONS: 1. Discharge home when recovery parameters are met. 2. Follow up biopsy specimen results. 3. We will start aggressive proton pump inhibitor therapy with omeprazole 40 mg b.i.d. times 30 days followed by another 30 days of once daily use. 4. Follow up in GI clinic in approximately 4 weeks to review symptoms. If there is continued dysphagia. We will proceed with a barium esophagram and consider esophageal manometry if indicated. If the abdominal pain and nausea continues status post PPI therapy, we will consider a gastric emptying scan. TRANSINT:[id number] Voice Confirmation ID: [id number] DOCUMENT ID: [id number] OPERATIVE REPORT [id number] REYES GARCIA NATHAN A DO at 1547 CC: [id number] DICTATION DATE: 08/20/18934 VENEER PRODUCTION MACHINE OPERATOR: 08/20/18 1304 [facility] 08/20/18 [facility] [address] [place] [address]
== END 2018-08-20 10:57 | disposition home or self-care (01) ==
LOC: D.OPS 07:14
PROVIDERS: Anesthesiology
DX: K21.0 Gastro-esophageal reflux disease with esophagitis (principal); K44.9 Diaphragmatic hernia without obstruction or gangrene; K29.50 Unspecified chronic gastritis without bleeding; B96.81 Helicobacter pylori [H. pylori] as the cause of diseases classified elsewhere; Z01.812 Encounter for preprocedural laboratory examination

== ENCOUNTER 2018-11-10 06:45 | Day surgery (SDC) | payer MEDICAID ==
[2018-11-07 15:17] LABS: HEMATOCRIT 42.1 % (42.0-54.0); HEMOGLOBIN 13.9 g/dL (13.5-17.5); MCH 27.5 pg (26.0-34.0); MCV 83.2 fL (80.0-100.0); MEAN PLATELET VOLUME 9.7 fL (7.4-10.4); RBC 5.06 10x6/uL (4.20-6.10); RDW 16.7 % (11.5-14.5); WBC 9.5 10x3/uL (4.8-10.8)
[2018-11-07 15:18] LABS: CALC OSMOLALITY 276 mosm/kg (275-300); CALCIUM 8.9 mg/dL (8.5-10.1); CARBON DIOXIDE 28.4 mmol/L (21.0-32.0); CHLORIDE - SERUM 100 mmol/L (98-107); CREATININE - SERUM 0.6 mg/dL (0.6-1.3); GLUCOSE 117 mg/dL (74-106); POTASSIUM - SERUM 4.2 mmol/L (3.5-5.1); SODIUM 138 mmol/L (136-145); UREA NITROGEN 12 mg/dL (7-18); eGFR NON AFRICAN AMERICAN > 90 mL/min (90-120)
[~2018-11-10] VITALS: Ht 185.4 cm; Wt 90.7 kg
[~2018-11-10 06:45] MED LIST changes: +GLUCOPHAGE1000 MG PO; +GLUCOTROL 5 MG T5 MG PO; +IBUPROFEN800 MG PO; +OMEPRAZOLE20 M1 PO; +PROZAC20 MG PO; +REXULTI1 MG PO
[2018-11-10 07:27] VITALS: BP 143/84; Ht 185.4 cm; Wt 90.7 kg
[2018-11-10] MEDS ORDERED: DEMEROL100 MG PO (11:59)
--- NOTE | 2018-11-27 11:33 | OP ---
PATIENT NAME: REYES GARCIA MEDICAL RECORD: [id number] :63 LOCATION:[facility] ADMISSION DATE: SURGEON: KAVITA PORTER MD DATE OF OPERATION: 11/10/2018 PREOPERATIVE DIAGNOSES: 1. Intractable sural nerve pain. 2. Chronic ingrown toenail with recurrence. POSTOPERATIVE DIAGNOSES: 1. Intractable sural nerve pain. 2. Chronic ingrown toenail with recurrence. PROCEDURES: 1. Ultrasound-guided resection for open sural nerve excision. 2. Toenail removal with bed ablation. SURGEON: Kavita Porter MD ANESTHESIA: General. INTRAOPERATIVE COMPLICATIONS: None. SUMMARY OF PATHOLOGIC FINDINGS: Essentially Dr. Cuba came in and identified the sural nerve, infiltrated around it for better identification for the open case and a digital block was performed for further case. OPERATIVE SUMMARY IN DETAIL: After obtaining the appropriate preoperative orthopedic surgery consent as well as well as anesthetic consultation, evaluation and clearance, the patient was brought to the operating room and placed on the operating table in supine position. After general laryngeal mask airway was administered, the patient was placed in the lateral position with the left lower extremity up. Left lower extremity was then prepped and draped in routine sterile fashion. The leg was elevated and exsanguinated, tourniquet was inflated to 350 mmHg. At this point, under sterile conditions, Dr. Chandan Cuba scrubbed in, identified the sural nerve on ultrasound and then dissected around it with lidocaine using spinal needle. This area was clearly marked, incision was made, taken down to the sural nerve and a section of approximately 1 cm was removed. This wound was then carefully closed with 2-0 Vicryl and 4-0 Prolene and temporarily covered. The toe having already been digitally blocked, was removed in its entirety and then sodium hydroxide was placed under the nail bed and allowed to sit for approximately 15 seconds. It was then irrigated and closed, sterile dressings were applied. The patient was awakened and taken to the recovery room in stable condition. All final needle and sponge counts were correct. TRANSINT:[id number] Voice Confirmation ID: [id number] DOCUMENT ID: [id number] OPERATIVE REPORT [id number] REYES GARCIAGILBERT PORTER MD, KAVITA AGUSTIN at 2492 CC: [id number] DICTATION DATE: 11/26/18 1737 PROGRAM EVALUATOR: 11/27/18 0435 [facility] 11/10/18 [id number] [place] [address]
== END 2018-11-10 13:49 | disposition home or self-care (01) ==
LOC: D.OPS 06:45 → D.PAN 08:00 → D.OPS 09:30 → D.PAN 09:30 → D.OPS 11:45
PROVIDERS: Anesthesiology; ATTEND Orthopaedic Surgery
DX: G58.8 Other specified mononeuropathies (principal); L60.0 Ingrowing nail; Z01.812 Encounter for preprocedural laboratory examination

== ENCOUNTER → 2019-01-21 09:07 | Outpatient (CLI) | payer MEDICAID ==
[2018-11-10 07:27] VITALS: BMI 26.4
[~2019-01-21 09:07] MED LIST changes: +DEMEROL100 MG PO
== END | disposition home or self-care (01) ==
LOC: D.RT 09:07
PROVIDERS: ATTEND Internal Medicine Pulmonary Disease
DX: J44.9 Chronic obstructive pulmonary disease, unspecified (principal)

== ENCOUNTER → 2019-04-17 09:15 | Outpatient (CLI) | payer MEDICAID ==
[2018-11-10 07:27] VITALS: BMI 26.4
== END | disposition home or self-care (01) ==
LOC: D.RT 09:15
PROVIDERS: ATTEND Internal Medicine Pulmonary Disease
DX: J44.9 Chronic obstructive pulmonary disease, unspecified (principal)

== ENCOUNTER → 2020-04-06 11:27 | Outpatient (CLI) | payer MEDICARE, MEDICAID ==
[2018-11-10 07:27] VITALS: BMI 26.4
== END | disposition home or self-care (01) ==
LOC: D.LAB 11:27
PROVIDERS: ATTEND Internal Medicine Pulmonary Disease
DX: Z11.59 Encounter for screening for other viral diseases (principal)

== ENCOUNTER → 2020-04-08 13:43 | Outpatient (CLI) | payer MEDICARE, MEDICAID ==
[2018-11-10 07:27] VITALS: BMI 26.4
== END | disposition home or self-care (01) ==
LOC: D.RT 03-28 13:00 → D.CT 03-28 14:00 → D.RT 13:43
PROVIDERS: ATTEND Internal Medicine Pulmonary Disease
DX: Z11.59 Encounter for screening for other viral diseases (principal); R91.8 Other nonspecific abnormal finding of lung field; J44.9 Chronic obstructive pulmonary disease, unspecified